=== PATIENT | male | born 1965 | race African-American/Black ===

== ENCOUNTER 2018-10-13 22:09 | Emergency (ER) | payer OTHER ==
[~2018-10-13] VITALS: Ht 180.3 cm; Wt 108.9 kg
[2018-10-13] MEDS ORDERED: CHLORTHALIDONE25 MG ORAL (22:25)
[2018-10-13] MEDS ORDERED: LOSARTAN POTAS100 MG ORAL (22:25)
[2018-10-13] MEDS ORDERED: ADALAT10 MG ORAL (22:25)
[2018-10-13] MEDS ORDERED: METOPROLOL SUCC50 MG ORAL (22:25)
--- NOTE | 2018-10-13 22:39 | Emergency Room Report ---
History of Present Illness General Chief Complaint: Edema Source: Patient Present Illness HPI Patient is a 53-year-old male presented after increased left lower extremity discomfort and swelling. Patient had onset of symptoms during hiking. He reports having increased pain to the left ankle. He denies any recent trauma. He states that this had increased gradually and was noted to be increasingly painful. Patient reports having recent increased Pain without any itchiness. He reports having recent travel to [facility]. He reports having prior history of asthma but denies any prior history of gout or cardiovascular disease. He denies any difficulty breathing. Allergies: Coded Allergies: Dog Dander (Verified Allergy, Unknown, 10/13/18) Patient History Past Medical History: see triage record Reviewed Nursing Documentation: PMH: Agreed; PSxH: Agreed Nursing Documentation-PMH Past Medical History: No History, Except For Hx Hypertension: Yes Review of Systems All Other Systems: negative except mentioned in HPI Physical Exam Vital Signs Date Time Temp Pulse Resp B/P (MAP) Pulse Ox O2 Delivery O2 Flow Rate FiO2 10/13/18 22:19 99.3 84 16 136/88 95 Room Air Sp02 EP Interpretation: reviewed, normal General Appearance: normal inspection, well appearing, no apparent distress, alert, GCS 15, obese Head: atraumatic ENT: normal ENT inspection, hearing grossly normal, normal voice Neck: normal inspection, full range of motion, supple, no bony tend Respiratory: normal inspection, lungs clear, normal breath sounds, no respiratory distress, no retraction, no wheezing Cardiovascular #1: regular rate, rhythm, no edema Gastrointestinal: normal inspection, normal bowel sounds, non tender, soft, no guarding, no hernia Genitourinary: no CVA tenderness Musculoskeletal: back normal, normal range of motion, swelling Neurologic: normal inspection, alert, oriented x3, responsive, 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 Differential diagnosis includes is not limited to deep venous thrombosis, gouty arthritis, insect bite , allergic reaction among others. Laboratory testing was notable for elevated uric acid level. Patient was noted to have some risk for DVT and ultrasound of the left lower extremity was performed which showed no evidence of DVT. Patient was noted to have some erythema above the ankle. Patient was given prescription for Keflex and advised to take this if erythema began to spread. Patient was given ibuprofen as well as prescription for ibuprofen. He is advised to follow-up with his primary care physician for recheck. Patient was taking medication which may precipitate gout was advised to follow-up with his doctor for possible change of medications if needed. Labs Test 10/13/18 22:50 White Blood Count 6.8 K/UL (4.8-10.8) Red Blood Count 5.72 M/UL (4.70-6.10) Hemoglobin 15.2 G/DL (14.2-18.0) Hematocrit 44.5 % (42.0-52.0) Mean Corpuscular Volume 78 FL (80-99) Mean Corpuscular Hemoglobin 26.5 PG (27.0-31.0) Mean Corpuscular Hemoglobin Concent 34.1 G/DL (32.0-36.0) Red Cell Distribution Width 12.0 % (11.6-14.8) Platelet Count 180 K/UL (150-450) Mean Platelet Volume 7.3 FL (6.5-10.1) Neutrophils (%) (Auto) 51.4 % (45.0-75.0) Lymphocytes (%) (Auto) 32.7 % (20.0-45.0) Monocytes (%) (Auto) 11.9 % (1.0-10.0) Eosinophils (%) (Auto) 2.7 % (0.0-3.0) Basophils (%) (Auto) 1.3 % (0.0-2.0) Uric Acid 8.8 MG/DL (2.6-7.2) Last Vital Signs Date Time Temp Pulse Resp B/P (MAP) Pulse Ox O2 Delivery O2 Flow Rate FiO2 10/13/18 22:19 99.3 84 16 136/88 95 Room Air Status: improved Disposition: HOME, SELF-CARE Condition: Stable Scripts Cephalexin* (KEFLEX*) 500 Mg Capsule 500 MG ORAL EVERY 6 HOURS, #40 CAP Prov: Uriel Smyth MD 10/13/18 Ibuprofen* (MOTRIN*) 600 Mg Tablet 600 MG ORAL Q8H PRN for For Pain, #30 TAB 0 Refills Prov: Uriel Smyth MD 10/13/18 Uriel Smyth MD Oct 13, 2018 22:39
[2018-10-13 23:03] VITALS: BP 142/88
[2018-10-13 23:22] LABS: BASOPHILS % (AUTO) 1.3 % (0.0-2.0); EOSINOPHILS % (AUTO) 2.7 % (0.0-3.0); HEMATOCRIT 44.5 % (42.0-52.0); HEMOGLOBIN 15.2 G/DL (14.2-18.0); LYMPHOCYTES % (AUTO) 32.7 % (20.0-45.0); MEAN CORPUSCULAR VOLUME 78 FL (80-99); MONOCYTES % (AUTO) 11.9 % (1.0-10.0); NEUTROPHILS % (AUTO) 51.4 % (45.0-75.0); PLATELET COUNT 180 K/UL (150-450); RED BLOOD COUNT 5.72 M/UL (4.70-6.10); WHITE BLOOD COUNT 6.8 K/UL (4.8-10.8)
[2018-10-13] MEDS ORDERED: IBUPROFEN600 MG ORAL (23:44)
[2018-10-13] MEDS ORDERED: CEPHALEXIN500 MG ORAL (23:46)
[2018-10-13 23:50] VITALS: BP 132/80
--- NOTE | 2018-10-14 10:51 | Diagnostic Imaging Report ---
Indication: Left leg pain and edema Technique: Grayscale duplex images of the left lower extremity veins Comparison: none Findings: Exam is limited; per phone discussion with technologist, due to the size of the leg and depth of the veins, Doppler interrogation of the superficial femoral and popliteal veins could not be performed. In addition, the calf veins could not be well imaged. Color Doppler imaging demonstrates no definite evidence of acute intraluminal thrombus. Doppler waveforms of the common femoral vein are phasic. Normal compressibility of all deep venous structures Impression: Limited exam; no definite evidence of deep venous thrombosis of the left leg This agrees with the preliminary interpretation provided overnight by [facility] teleradiology service.
== END 2018-10-14 | disposition home or self-care (01) ==
LOC: EMR 22:25
DX: M10.9 Gout, unspecified (principal); I10 Essential (primary) hypertension
CPT/HCPCS: 36415; 84550; 85025; 93971; 99284